=== PATIENT | male | born 1965 | race Caucasian/White ===

== ENCOUNTER 2019-10-20 13:30 | Outpatient (CLI) | payer MEDICARE, OTHER, SELFPAY ==
--- NOTE | ~2019-10-20 | XR_ITS ---
XR knee LT 2V DATE: 10/20/2019 13:55 INDICATION: Bilateral knee pain TECHNIQUE: AP and lateral views COMPARISON: None FINDINGS: There is mild periarticular spurring at the patellofemoral compartment. There is mild to mo derate loss of medial compartment joint space. No fracture or dislocation or joint effusion, periosteal reaction or bone destruction, radiopaque int ra-articular loose body or chondrocalcinosis is evident. IMPRESSION: Osteoarthritic changes primarily at the medial and patellofemoral compartments Reviewed, dictated and finalized at location A. IMPRESSION: Osteoarthritic changes primarily at the medial and patellofemoral c ompartments
--- NOTE | ~2019-10-20 | XR_ITS ---
XR knee RT 2V DATE: 10/20/2019 13:55 INDICATION: Bilateral knee pain TECHNIQUE: AP and lateral views COMPARISON: None FINDINGS: There is mild periarticular spurring of the patellofemoral joint. There is joint space narr owing of moderate degree at the medial compartment. No fracture or dislocation or joint effusion, periosteal reaction or bone destruction, radiopaque int ra-articular loose body or chondrocalcinosis is evident. IMPRESSION: Osteoarthritic changes primarily at the patellofemoral and medial compartments Reviewed, dictated and finalized at location A. IMPRESSION: Osteoarthritic changes primarily at the patellofemoral and medial c ompartments
== END 2019-10-20 13:31 | disposition home or self-care (01) ==
PROVIDERS: PCP Family Medicine; Visit Provider Nurse Practitioner Family
DX: M25.561 Pain in right knee (principal); M25.562 Pain in left knee; M17.0 Bilateral primary osteoarthritis of knee
CPT/HCPCS: 73560

== ENCOUNTER 2020-02-26 14:58 | Outpatient (CLI) | payer MEDICARE, OTHER, SELFPAY ==
--- NOTE | ~2020-02-26 | US_ITS ---
EXAMINATION: US venous doppler [facility] DATE: 02/26/2020 15:27 INDICATION: Left lower limb pain. TECHNIQUE: Grayscale ultrasound images without and with compression and Doppler ultrasound images of the left lower extremity veins were obtained. COMPARISON: None. FINDINGS: The visualized portions of left common femoral vein, profunda (deep) femoral vein, femoral vein, popl iteal vein, peroneal veins, posterior tibial veins, and greater saphenous vein outflow are patent. IMPRESSION: 1. No deep venous thrombosis. Reviewed, dictated and finalized at location A.
== END 2020-02-26 14:59 | disposition home or self-care (01) ==
PROVIDERS: PCP Family Medicine; Visit Provider Nurse Practitioner
DX: M79.662 Pain in left lower leg (principal)
CPT/HCPCS: 93971

== ENCOUNTER 2023-06-09 14:04 | Outpatient (CLI) | payer MEDICARE, SELFPAY ==
--- NOTE | ~2023-06-09 | US_ITS ---
Renal-Bladder ultrasound Clinical History: Right flank pain Technique: Real-time sonographic imaging of the kidneys and urinary bladder was performed. Findings: The right kidney measures 13.5 cm in length and the left kidney measures 13.2 cm. There is no hydronephrosis or renal calculus identified. Renal cortical echogenicity is within normal limits. No solid renal mass lesion is identified. The urinary bladder is moderately distended at the time of this exam. No intraluminal echoes are iden tified. No abnormal wall thickening is seen. Impression: Unremarkable ultrasound of the kidneys and urinary bladder. Reviewed, dictated and finalized at location M. [facility] [employer] PROFESS[employer] Impression: Unremarkable ultrasound of the kidneys and urinary bladder.
== END 2023-06-09 14:05 ==
LOC: MICIMG 14:06
PROVIDERS: PCP Emergency Medicine; Visit Provider Emergency Medicine
DX: R10.9 Unspecified abdominal pain (principal)
CPT/HCPCS: 76775